=== PATIENT | female | born 1965 | race Caucasian/White ===

== ENCOUNTER 2018-05-20 21:03 | Emergency (ER) | payer OTHER ==
[~2018-05-20] VITALS: Ht 172.7 cm; Wt 82.0 kg
[2018-05-20] MEDS ORDERED: HYDROmorphone 2 MG/ML, 1ML ONE (21:19)
[2018-05-20] MEDS ORDERED: HYDROmorphone 1 MG/ML, 1ML IVPush PRN (21:30)
[2018-05-20] MEDS ORDERED: ONDANSETRON 2MG/ML, 2ML IVPush ONE (21:30)
[2018-05-20] MEDS ORDERED: KETAMINE 50 MG/ML, 10ML ONE (22:35)
[2018-05-20] MEDS ORDERED: KETAMINE 10 MG/ML, 20ML IV ONE (23:00)
[2018-05-21 02:11] VITALS: BP 104/70
== END 2018-05-21 02:15 | disposition home or self-care (01) ==
LOC: ED 22:27
DX: S82.231A Displaced oblique fracture of shaft of right tibia, initial encounter for closed fracture (principal); S82.431A Displaced oblique fracture of shaft of right fibula, initial encounter for closed fracture; W19.XXXA Unspecified fall, initial encounter; Y93.89 Activity, other specified; Y92.009 Unspecified place in unspecified non-institutional (private) residence as the place of occurrence of the external cause; Y99.8 Other external cause status
CPT/HCPCS: 27752; 73564; 73590; 73600; 73620; 96374; 99285; J1170